=== PATIENT | male | born 1990 | race Caucasian/White ===

== ENCOUNTER → 2016-11-25 | Outpatient (CLI) | payer OTHER ==
--- NOTE | 2016-11-25 10:18 | DX ---
AP Abdomen, Two Views 9:21 a.m. Clinical History: 26-year-old male with history of a left renal calculus. Comparison Study: None currently available. Findings: There is a moderate amount of air and fecal material throughout the entirety of the colon, obscuring the renal shadows. On the first image acquired, there is a small triangular-shaped opacity seen in the left mid abdomen, which could represent a calculus or reside within the fecal stream. The re is also a small rounded calcification identified in a left paracentral location of the pelvis whic h could be a phlebolith although a urinary bladder calculus could also have this appearance (alternat ively this could also be superimposed, and reside within the fecal stream). There is no apparent orga nomegaly. The lung bases are clear. The osseous structures are age-appropriate. Impression: Moderate constipation-obstipation precludes evaluation of nephroureterolithiasis. There a re a couple of potential calculi identified (as above indicated). Correlation with prior studies woul d be helpful. If there is further clinical concern, unenhanced CT imaging would be more sensitive.
== END ==
LOC: FIMAGING 09:20
PROVIDERS: ATTEND Specialist
DX: N20.0 Calculus of kidney (principal); K59.00 Constipation, unspecified